=== PATIENT | male | born 1960 | race Caucasian/White ===

== ENCOUNTER → 2016-10-25 | Outpatient (CLI) | payer OTHER ==
[2016-10-18 07:00] VITALS: BP 119/81
[~2016-10-25] MED LIST: ACET325T9 PO; AMIO200T2 PO; ASPI-482 PO; ASPI325T4 PO; ATEN25TA PO; CLOP75TA PO; CLOP75TA27 PO; DIAZ5TAB4 PO; FAMO-63 PO; FLUT16SP NS; FURO80TA72 PO; GABA-586 PO; HYDR-2678 PO; HYDR-2762 PO; IBUP-1027 PO; IPRA3AMP NEB; ISOS30TA4 PO; ISOS60TA2 PO; LEVO500T38 PO; METO-269 PO; METO25TA9 PO; MONT10TA9 PO; OMEG300C PO; ONDA4TAB7 PO; PANT40TA5 PO; POLY17PO5 PO; POTA20TA12 PO; POTA20TA4 PO; PRED-220 PO; PRED5TAB19 PO; Promethazine Hcl/Codeine PO; RANO500T2 PO; SIMV20TA3 PO; TAMS0.4C97 PO; TEMA15CA6 PO; TERA2CAP3 PO
--- NOTE | 2016-10-26 15:09 | SLEEP ---
DATE OF STUDY: 10/25/2016 ATTENDING PHYSICIAN: Slava Ward M.D. The patient is 56-year-old who weighs 315 pounds with a BMI of 43. The patient had a home sleep study and was diagnosed with mild SHERRI. He returned to the sleep lab for CPAP titration. During the night study, the patient spent 424 minutes in bed and slept for 248 minutes with low sleep efficiency of 58%. Sleep latency was prolonged at 40 minutes with a REM latency of 46 minutes. Overall, sleep architecture showed normal stage I and stage II sleep, normal slow wave and normal REM sleep. The patient was started on CPAP at 5 cm water and titrated up to 11 cm of water. At the final pressure, the patient had 48 minutes of sleep. The patient had supine sleep, but no REM sleep was observed. AHI was zero per hour. Oxygen saturations remained above 89%. The patient used small sized nasal pillows. EKG monitoring revealed normal sinus rhythm. No sustained arrhythmias were observed. Average heart rate was 72 beats per minute. PLMS were not seen. IMPRESSION: 1. Sleep apnea diagnosed by home sleep study. 2. No clinically significant periodic limb movements of sleep. 3. Reduced sleep efficiency of 58%, resulting from sleep onset and sleep maintenance insomnia. RECOMMENDATIONS: 1. CPAP at 11 cm of water completely eliminated patient's sleep apnea and should be used on a nightly basis. 2. Follow up in 4-6 weeks to assess compliance with CPAP and to document clinical improvement. 3. Weight loss is advised. 4. 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 5. Caution regarding driving until symptoms of sleep apnea resolve with the use of CPAP. 6. Please evaluate insomnia if it persists despite use of CPAP. IMAN PIERRE MD DR: IZA/kiya JOB#: [id number] / [id number] SLAVA Chen MD MTDD
== END | disposition home or self-care (01) ==
LOC: RT 18:33
PROVIDERS: ATTEND Family Medicine
DX: G47.33 Obstructive sleep apnea (adult) (pediatric) (principal)
CPT/HCPCS: 95811

== ENCOUNTER 2016-12-10 21:55 | Emergency (ER) | payer MEDICARE, OTHER ==
[2016-12-10 22:28] LABS: BASO # 0.1 x10^3/uL (0.0-0.2); BASO % 1 % (0-3); EOS % 3 % (0-3); HEMATOCRIT 48.7 % (39.0-53.0); HEMOGLOBIN 16.8 g/dL (13.0-17.5); LYMPH # 3.2 x10^3/uL (1.0-4.8); LYMPH % 34 % (24-48); MEAN CORPUSCULAR HEMOGLOBIN 30 pg (25-35); MEAN CORPUSCULAR HGB CONC 35 g/dL (31-37); MEAN CORPUSCULAR VOLUME 88 fL (79-100); MONO % 9 % (0-9); NEUT % 53 % (31-73); PLATELET COUNT 214 x10^3/uL (140-400); RED BLOOD COUNT 5.55 x10^6/uL (4.30-5.70); RED CELL DISTRIBUTION WIDTH 14.9 % (11.5-14.5); WHITE BLOOD COUNT 9.4 x10^3/uL (4.0-11.0)
[2016-12-10] MEDS ORDERED: HYDROMORPHONE 2 MG/ML VIAL. IV PRN (22:30)
[2016-12-10] MEDS ORDERED: IV NORMAL SALINE 1000ML BAG 1,000 ML IV ONE (22:30)
[2016-12-10] MEDS ORDERED: ONDANSETRON PF 4 MG/2 ML VIAL. IV ONE (22:30)
[2016-12-10 22:43] LABS: ANION GAP 9 (6-14); BLOOD UREA NITROGEN 16 mg/dL (8-26); CALCIUM 8.4 mg/dL (8.5-10.1); CARBON DIOXIDE 30 mmol/L (21-32); CHLORIDE 106 mmol/L (98-107); CREATININE 1.2 mg/dL (0.7-1.3); GFR 62.4; GLUCOSE 135 mg/dL (70-99); POTASSIUM 3.9 mmol/L (3.5-5.1); SODIUM 145 mmol/L (136-145)
[2016-12-10 22:48] LABS: ALBUMIN 3.2 g/dL (3.4-5.0); ALK PHOS 85 U/L (46-116); ALT (SGPT) 27 U/L (16-63); AST (SGOT) 31 U/L (15-37); DIRECT BILIRUBIN < 0.1 mg/dL (0.0-0.2); TOTAL BILIRUBIN 0.7 mg/dL (0.2-1.0); TOTAL PROTEIN 7.3 g/dL (6.4-8.2)
[2016-12-10 23:11] LABS: BILIRUBIN,URINE SMALL (NEG); GLUCOSE,URINE NEGATIVE (NEG); NITRITE,URINE NEGATIVE (NEG); PROTEIN,URINE NEGATIVE (NEG-TRACE)
[2016-12-10 23:20] LABS: BACTERIA,URINE FEW /HPF (0-FEW); RBC,URINE 0 /HPF (0-2); SQUAMOUS EPITHELIAL CELL,UR FEW /LPF; WBC,URINE OCC /HPF (0-4)
--- NOTE | 2016-12-10 23:22 | RAD ---
PROCEDURE Right upper quadrant ultrasound HISTORY 56-year-old male with intermittent right upper quadrant pain that radiates to the back for 3 days, pain began tonight 1 hour postprandial. TECHNIQUE Transverse and longitudinal sonography of the right upper quadrant is performed. COMPARISON None FINDINGS The pancreas is obscured by overlying bowel gas. Liver demonstrates normal contour and echogenicity measuring 17.2 cm. Main portal vein demonstrates normal directional flow. The right kidney measures 11.1 x 5.0 x 5.4 cm, without evidence of hydronephrosis. The gallbladder wall appears mildly thickened at 4 millimeters. A few hyperechoic foci are present near the region of the gallbladder neck along the wall. Positive sonographic Montes sign is present. Common bile duct measures 5 mm in diameter. No free fluid is seen within the provided images. IMPRESSION Mild gallbladder wall thickening is nonspecific, without definite calcified gallstones or pericholecystic fluid seen to suggest acute cholecystitis. A few tiny hyperechoic foci are seen within the gallbladder lumen near the neck, may represent tiny stones or polyps. If clinical concern for acute cholecystitis is high, consider hepatobiliary scan. Electronically signed by: Shanita Patterson (Dec 10, 2016 23:21:37)
[2016-12-10] MEDS ORDERED: HYDR-2666 PO (23:31)
[2016-12-10] MEDS ORDERED: ONDA4TAB10 SL (23:31)
--- NOTE | 2016-12-10 23:32 | PHYS DOC ---
Past Medical History Past Medical History: Anxiety, CAD, CHF, High Cholesterol, Heart Disease, Hypertension, NE, Other Past Surgical History: Angioplasty, Coronary Bypass Surgery, Other Additional Past Surgical Histo: CARDIAC CATH WITH 6 STENTS PLACED, BACK SX, ACL SX Alcohol Use: None Drug Use: None Adult General Chief Complaint Chief Complaint: FLANK PAIN HPI HPI 56-year-old male presenting the emergency department with right upper quadrant abdominal pain is been present for 48 hours. The pain is sharp intermittent worse with fatty foods. He comes and goes. He denies fevers. He has nausea but without vomiting. He denies blood in his stools. Review of systems is negative for chest pain shortness of breath fevers chills. All other review of systems is negative unless otherwise noted in history of present illness. Review of Systems Review of Systems SEE ABOVE. Current Medications Current Medications Current Medications Medications (Trade) Dose Ordered Sig/[place] Start Time Stop Time Status Last Admin Dose Admin Hydromorphone HCl (Dilaudid) 0.5 mg PRN Q1HR PRN 12/10/16 22:30 12/10/16 22:35 0.5 MG Ondansetron HCl 4 mg 4 mg 1X ONCE 12/10/16 22:30 12/10/16 22:31 DC 12/10/16 22:34 4 MG Sodium Chloride (Iv Sodium Chloride 0.9% 1000ml Bag) 1,000 ml @ 1,000 mls/hr 1X ONCE 12/10/16 22:30 12/10/16 23:29 DC 12/10/16 22:34 1,000 MLS/HR Allergies Allergies Allergies Coded Allergies Type Severity Reaction Last Updated Verified No Known Drug Allergies 07/29/14 No Physical Exam Physical Exam Constitutional: Well developed, well nourished, no acute distress, non-toxic appearance. HENT: Normocephalic, atraumatic, bilateral external ears normal, oropharynx moist, no oral exudates, nose normal. [] Eyes: PERRLA, EOMI, conjunctiva normal, no discharge. Neck: Normal range of motion, no tenderness, supple, no stridor. [] Cardiovascular:Heart rate regular rhythm, no murmur Lungs & Thorax: Bilateral breath sounds clear to auscultation [] Abdomen: Abdomen is soft and mildly tender to palpation on the right upper quadrant. Negative McBurney's point. Negative Montes sign. No rebound tenderness or guarding is present. Skin: Warm, dry, no erythema, no rash. Back: No tenderness, no CVA tenderness. [] Extremities: No tenderness, no cyanosis, no clubbing, ROM intact, no edema. [] Neurologic: Alert and oriented X 3, normal motor function, normal sensory function, no focal deficits noted. [] Psychologic: Affect normal, judgement normal, mood normal. [] Current Patient Data Vital Signs Vital Signs Date Time Temp Pulse Resp B/P Pulse Ox O2 Delivery O2 Flow Rate FiO2 12/10/16 22:36 77 15 169/96 97 Room Air 12/10/16 22:00 98.4 98.4 Lab Values Laboratory Tests Test 12/10/16 22:10 12/10/16 22:45 White Blood Count 9.4x10^3/uL (4.0-11.0) Red Blood Count 5.55x10^6/uL (4.30-5.70) Hemoglobin 16.8g/dL (13.0-17.5) Hematocrit 48.7% (39.0-53.0) Mean Corpuscular Volume 88fL (79-100) Mean Corpuscular Hemoglobin 30pg (25-35) Mean Corpuscular Hemoglobin Concent 35g/dL (31-37) Red Cell Distribution Width 14.9% (11.5-14.5) H Platelet Count 214x10^3/uL (140-400) Neutrophils (%) (Auto) 53% (31-73) Lymphocytes (%) (Auto) 34% (24-48) Monocytes (%) (Auto) 9% (0-9) Eosinophils (%) (Auto) 3% (0-3) Basophils (%) (Auto) 1% (0-3) Neutrophils # (Auto) 4.9x10^3uL (1.8-7.7) Lymphocytes # (Auto) 3.2x10^3/uL (1.0-4.8) Monocytes # (Auto) 0.9x10^3/uL (0.0-1.1) Eosinophils # (Auto) 0.3x10^3/uL (0.0-0.7) Basophils # (Auto) 0.1x10^3/uL (0.0-0.2) Sodium Level 145mmol/L (136-145) Potassium Level 3.9mmol/L (3.5-5.1) Chloride Level 106mmol/L (98-107) Carbon Dioxide Level 30mmol/L (21-32) Anion Gap 9 (6-14) Blood Urea Nitrogen 16mg/dL (8-26) Creatinine 1.2mg/dL (0.7-1.3) Estimated GFR (Cockcroft-Gault) 62.4 Glucose Level 135mg/dL (70-99) H Calcium Level 8.4mg/dL (8.5-10.1) L Total Bilirubin 0.7mg/dL (0.2-1.0) Direct Bilirubin < 0.1mg/dL (0.0-0.2) Aspartate Amino Transferase (AST) 31U/L (15-37) Alanine Aminotransferase (ALT) 27U/L (16-63) Alkaline Phosphatase 85U/L (46-116) Troponin I Quantitative < 0.017ng/mL (0.000-0.055) Total Protein 7.3g/dL (6.4-8.2) Albumin 3.2g/dL (3.4-5.0) L Lipase 158U/L (73-393) Urine Collection Type Unknown Urine Color Yellow Urine Clarity Clear Urine pH 7.0 Urine Specific [place] 1.015 Urine Protein Negativemg/dL (NEG-TRACE) Urine Glucose (UA) Negativemg/dL (NEG) Urine Ketones (Stick) Negativemg/dL (NEG) Urine Blood Negative (NEG) Urine Nitrite Negative (NEG) Urine Bilirubin Small (NEG) Urine Urobilinogen Dipstick 4.0mg/dL (0.2 mg/dL) Urine Leukocyte Esterase Negative (NEG) Urine RBC 0/HPF (0-2) Urine WBC Occ/HPF (0-4) Urine Squamous Epithelial Cells Few/LPF Urine Bacteria Few/HPF (0-FEW) Lactic Acid Level 0.8mmol/L (0.4-2.0) Laboratory Tests 12/10/16 22:10 Laboratory Tests 12/10/16 22:10 EKG EKG [] Radiology/Procedures Radiology/Procedures [] Course & Med Decision Making Course & Med Decision Making Pertinent Labs and Imaging studies reviewed. (See chart for details) [] 56-year-old male presenting to the emergency department today with right upper quadrant abdominal pain. Afebrile normal heart rate. Hypertension present. Pertinent physical exam findings show a mildly tender right upper quadrant without rebound tenderness or guarding. Negative Montes sign. Ultrasound of the right upper quadrant mild gallbladder wall thickening which is nonspecific. Essentially, the ultrasound is equivocal. Blood work obtained which shows normal CBC. Urinalysis negative. Chemistry panel otherwise unremarkable. LFTs within normal limits. Valuation the patient's pain improved after being given fluids nausea and pain medication. Repeat abdominal exam shows nontender abdomen. Patient feeling comfortable. I discussed the case with the patient and recommended trial of the outpatient care with close follow-up. [id number] discharge instructions given. Patient comfortable with plan. At the very least the patient has biliary colic. He may require a HIDA scan if his symptoms worsen. Patient demonstrated verbal understanding. Dragon Disclaimer Dragon Disclaimer This electronic medical record was generated, in whole or in part, using a voice recognition dictation system. Departure Departure Impression: Primary Impression: Epigastric abdominal pain Disposition: HOME, SELF-CARE Condition: STABLE Referrals: ANTONIO JACOB MD (PCP) Patient Instructions: Abdominal Pain Additional Instructions: Thank you for allowing us to participate in your care today. Followup with your primary care physician in 3 days if your symptoms do not improve. If you do not have a primary care provider you can ask for a list of our primary care providers. Return to the emergency department you have any new or concerning findings. This should be evaluated by the primary care physician and any necessary consulting services for continued management within a few days after discharge. Return to emergency room if you have any new or concerning symptoms including but not limited to fever, chills, nausea, vomiting, intractable pain, any new rashes, chest pain, shortness of air, uncontrolled bleeding, difficulty breathing, and/or vision loss. You may have been prescribed medication that can change in your level of thinking and ability to operate machinery. These medications include hydrocodone and Ativan. Also, Benadryl has been known to do this as well. Be sure to check with your pharmacist and ask if the medications you've prescribed can affect your level of consciousness. I recommend not operating heavy machinery or driving while on medication such as these. Scripts Ondansetron (Zofran Odt)4 Mg Tab.rapdis1 Tab SL PRN Q8HRS PRN NAUSEA #6 TAB Prov:DAREN MCKAY MD 12/10/16 Hydrocodone Bit/Acetaminophen (Hydrocodone-Apap 5-325 )1 Each Tablet1 Tab PO PRN Q6HRS PRN PAIN #15 TAB Be careful as this medication may cause you to be drowsy or tired. Do not drive on this medication. Prov:DAREN MCKAY MD 12/10/16 DAREN MCKAY MD Dec 10, 2016 23:32
[2016-12-11 00:17] VITALS: BP 138/67
--- NOTE | 2016-12-11 11:08 | EKG ---
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
== END 2016-12-11 00:26 | disposition home or self-care (01) ==
LOC: ER 21:55
DX: R10.13 Epigastric pain (principal); I25.2 Old myocardial infarction; E78.00 Pure hypercholesterolemia, unspecified; I25.10 Atherosclerotic heart disease of native coronary artery without angina pectoris; I11.0 Hypertensive heart disease with heart failure; I50.9 Heart failure, unspecified; Z95.1 Presence of aortocoronary bypass graft
CPT/HCPCS: 36415; 76705; 80048; 80076; 81001; 83605; 83690; 84484; 85027; 93005; 96361; 96374; 96375; 99285; J1170; J2405; J7030

== ENCOUNTER 2016-12-29 09:43 | Inpatient (IN) | payer MEDICARE, OTHER ==
[~2016-12-29] VITALS: Ht 182.9 cm; Wt 143.9 kg
[~2016-12-29 09:43] MED LIST changes: +BUPIVAC MPF-EPI 0.5%-1:200000 30 ML VIAL. ONE; +CEFAZOLIN 2GM PREMIX 50 ML IV PRN; +FENTANYL PF 100 MCG/2 ML VIAL. IV PRN; +FENTANYL PF 100 MCG/2 ML VIAL. ONE; +HYDR-2666 PO; +HYDROMORPHONE 2 MG/ML VIAL. IV PRN; +IOHEXOL 300 MG/ML 50 ML VIAL. ONE; +IV RINGERS,LACTATED 1000ML 1,000 ML IV SCH; +LIDOCAINE 1% 1 ML SYRINGE. ID PRN; +LIDOCAINE 2% 100 MG/5 ML DISP.SYRIN. ONE; +MIDAZOLAM HCL 2 MG/2 ML VIAL. ONE; +MORPHINE SULFATE 2 MG/ML DISP.SYRIN. IV PRN; +ONDA4TAB10 SL; +ONDANSETRON PF 4 MG/2 ML VIAL. IV PRN; +ONDANSETRON PF 4 MG/2 ML VIAL. ONE; +PROCHLORPERAZINE 10 MG/2 ML VIAL. IV PRN; +PROPOFOL 20 ML IV ONE; +ROCURONIUM 50 MG/5 ML VIAL. ONE; +SEVOFLURANE 31 TO 60 MINUTES. IH ONE; +SURGICEL HEMOSTAT 4X8 EACH. ONE
[2016-12-29] MEDS ORDERED: SUCCINYLCHOLINE 200 MG/10 ML VIAL. ONE (11:05)
[2016-12-29] MEDS ORDERED: NEOSTIGMINE METHYLSULFATE 5 MG/5 ML SYRINGE. ONE (12:08)
[2016-12-29] MEDS ORDERED: GLYCOPYRROLATE 1 MG/5 ML VIAL. ONE (12:08)
--- NOTE | 2016-12-29 12:12 | RAD ---
Indication operative cholangiogram. A members of the Department of surgery fluoroscopy was provided. 4 fluoroscopic spot images were obtained. Fluoroscopy time associated with the examination was 36 seconds. The common bile duct appears unremarkable. Contrast flows unremarkably into the duodenum. IMPRESSION: Normal operative cholangiogram
[2016-12-29] MEDS ORDERED: FENTANYL PF 100 MCG/2 ML VIAL. ONE (12:18)
[2016-12-29] MEDS ORDERED: ONDANSETRON PF 4 MG/2 ML VIAL. IV PRN (12:30)
[2016-12-29] MEDS ORDERED: HYDROMORPHONE 2 MG/ML VIAL. IV PRN (12:30)
[2016-12-29] MEDS ORDERED: 0.9 % SODIUM CHLORIDE 10 ML DISP.SYRIN. IV PRN (12:30)
--- NOTE | 2016-12-29 12:38 | PDOC4 ---
Operative Note Operative Note Operative Note: Preoperative Diagnosis: Chronic cholecystitis Postoperative Diagnosis: Same Procedure: Laparoscopic cholecystectomy with intraoperative cholangiogram Surgeons: Adrian Anesthesia: Gen. Estimated Blood Loss: 10 mL Specimen: Gallbladder to pathology Drains: None Complications: None Indications: The patient is a 56 year old male who is been experiencing recurrent upper abdominal pain consistent with biliary colic. His evaluation was suggestive of cholecystitis with gallbladder stones vs polyps noted on ultrasound. Surgical treatment was offered by means of a laparoscopic cholecystectomy. The risks of surgery were discussed which include bleeding, infection, bile duct injury, bile leak, pain, the potential for additional surgeries or procedures. The patient understands and would like to proceed. Description: The patient was taken to the operating room and laid supine on the operating table. General anesthesia was performed. The abdomen was prepped with ChloraPrep and draped in a standard surgical fashion. A small infraumbilical incision was made with a scalpel. The Veress needle was then inserted and a pneumoperitoneum was then created. A 5 mm trocar was then inserted and the laparoscope was introduced. In the upper midabdomen an 11 mm trocar was inserted and in the right upper quadrant two5 mm trocars were inserted. The gallbladder was retracted cephalad. The cystic duct was dissected free from surrounding tissues. One clip was placed on the duct near the gallbladder junction. An opening was made in the duct and a cholangiocatheter placed within and secured with a clip. Using contrast dye and fluoroscopy an intraoperative cholangiogram was performed. There was some initial issues with constrast extravasation. I was able to milk out some debris from the cystic duct but no large stones. Another effort with dye introduction showed the common bile duct and much of the common hepatic duct. There was some continued extravasation at the insertion site likely from technical issues. There were no common duct filling defects and contrast readily passed into the duodenum. The clip and catheter were then withdrawn. Three clips were placed on the cystic duct and it was divided. The cystic artery was then identified, dissected free, doubly clipped and divided as well. The gallbladder was then mobilized away from the liver with cautery. The gallbladder was then placed in an endoscopic bag and extracted at the superior trocar site. The fascia there was closed with an 0 Vicryl suture using an endoclose. All blood and irrigation fluid was suctioned and hemostasis was good. The remaining ports were removed and the pneumoperitoneum was relieved. The skin incisions were injected with half percent Marcaine with epinephrine, and all were closed using 4-0 Monocryl suture. Steri-Strips and dressings were then applied. The patient tolerated the procedure well and was sent to the recovery room in stable condition. At the end of the case all counts were correct. LEE SAUCEDO MD Dec 29, 2016 12:38
[2016-12-29] MEDS ORDERED: DIAZEPAM 5 MG TABLET PO PRN (12:45)
[2016-12-29] MEDS ORDERED: HYDROCODONE/APAP 5/325MG TABLET. PO PRN (12:45)
[2016-12-29] MEDS: FENTANYL PF 100 MCG/2 ML VIAL. IV PRN ×2 (12:56→13:08)
[2016-12-29] MEDS ORDERED: FUROSEMIDE 80 MG TABLET PO SCH (13:00)
[2016-12-29] MEDS: TAMSULOSIN 0.4 MG CAP.ER.24H. PO SCH (13:00)
[2016-12-29] MEDS ORDERED: ATENOLOL 25 MG TABLET PO SCH (13:00)
[2016-12-29] MEDS: ISOSORBIDE MONONITRATE ER 60 MG TAB.ER.24H PO SCH (13:00)
[2016-12-29] MEDS: ASPIRIN 325 MG TABLET PO SCH (13:00)
[2016-12-29 18:19] VITALS: BP 157/85
[2016-12-29] MEDS: POTASSIUM CL 20MEQ-0.45% NACL 1,000 ML IV SCH (18:56)
[2016-12-29 19:00] VITALS: BP 117/74
[2016-12-29] MEDS ORDERED: SIMVASTATIN 20 MG TABLET PO SCH (21:00)
[2016-12-29] MEDS: HYDROCODONE/APAP 5/325MG TABLET. PO PRN ×2 (21:24→23:03)
[2016-12-29] MEDS: RANOLAZINE 500 MG TAB.ER.12H PO SCH (21:24)
[2016-12-29] MEDS: POTASSIUM CHLORIDE 20 MEQ TABLET.ER. PO SCH (21:25)
[2016-12-29 22:32] VITALS: BP 134/81
[2016-12-30] MEDS: POTASSIUM CL 20MEQ-0.45% NACL 1,000 ML IV SCH (01:49)
[2016-12-30] MEDS: HYDROCODONE/APAP 5/325MG TABLET. PO PRN ×2 (04:14→08:46)
[2016-12-30 04:20] VITALS: BP 109/59
[2016-12-30] MEDS ORDERED: FUROSEMIDE 80 MG TABLET. PO SCH (05:58)
[2016-12-30] MEDS ORDERED: ATENOLOL 25 MG TABLET. PO SCH (05:58)
[2016-12-30] MEDS ORDERED: ONDANSETRON PF 4 MG/2 ML VIAL. IV PRN (05:58)
[2016-12-30 07:00] VITALS: BP 136/79
[2016-12-30 08:13] LABS: HEMATOCRIT 48.2 % (39.0-53.0); HEMOGLOBIN 16.3 g/dL (13.0-17.5); RED BLOOD COUNT 5.45 x10^6/uL (4.30-5.70); RED CELL DISTRIBUTION WIDTH 14.9 % (11.5-14.5); WHITE BLOOD COUNT 12.4 x10^3/uL (4.0-11.0)
[2016-12-30 08:19] LABS: CALCIUM 8.7 mg/dL (8.5-10.1); CREATININE 1.1 mg/dL (0.7-1.3); POTASSIUM 3.8 mmol/L (3.5-5.1)
[2016-12-30] MEDS: ASPIRIN 325 MG TABLET PO SCH (08:36)
[2016-12-30] MEDS: ISOSORBIDE MONONITRATE ER 60 MG TAB.ER.24H PO SCH (08:38)
[2016-12-30] MEDS: TAMSULOSIN 0.4 MG CAP.ER.24H. PO SCH (08:38)
[2016-12-30] MEDS: RANOLAZINE 500 MG TAB.ER.12H PO SCH (08:40)
[2016-12-30] MEDS: POTASSIUM CHLORIDE 20 MEQ TABLET.ER. PO SCH (08:41)
[2016-12-30] MEDS ORDERED: CLOPIDOGREL BISULFATE 75 MG TABLET PO SCH (09:00)
[2016-12-30 11:14] VITALS: BP 105/67
[2016-12-30] MEDS ORDERED: HYDROMORPHONE 2 MG/ML VIAL. IV PRN (13:38)
--- NOTE | 2016-12-30 14:20 | PDOC ---
PROGRESS NOTES Subjective Subjective doing well, no complaints Objective Objective Vital Signs Date Time Temp Pulse Resp B/P Pulse Ox O2 Delivery O2 Flow Rate FiO2 12/30/16 11:14 97.9 65 18 105/67 92 Room Air 97.9 12/29/16 13:47 2 Intake and Output 12/30/16 07:00 Intake Total 1400 ml Output Total 80 ml Balance 1320 ml Intake Oral 600 ml IV Total 800 ml Output Urine Total 70 ml Estimated Blood Loss 10 ml Physical Exam Abdomen: Soft, No tenderness Assessment Assessment Problems Medical Problems: (1) Cholecystitis, chronic Status: Acute Plan Plan of Care Discharge Comment Review of Relevant I have reviewed the following items julian (where applicable) has been applied. Labs Laboratory Tests Test 12/30/16 07:46 White Blood Count 12.4x10^3/uL (4.0-11.0) Red Blood Count 5.45x10^6/uL (4.30-5.70) Hemoglobin 16.3g/dL (13.0-17.5) Hematocrit 48.2% (39.0-53.0) Mean Corpuscular Volume 89fL (79-100) Mean Corpuscular Hemoglobin 30pg (25-35) Mean Corpuscular Hemoglobin Concent 34g/dL (31-37) Red Cell Distribution Width 14.9% (11.5-14.5) Platelet Count 215x10^3/uL (140-400) Sodium Level 144mmol/L (136-145) Potassium Level 3.8mmol/L (3.5-5.1) Chloride Level 107mmol/L (98-107) Carbon Dioxide Level 28mmol/L (21-32) Anion Gap 9 (6-14) Blood Urea Nitrogen 15mg/dL (8-26) Creatinine 1.1mg/dL (0.7-1.3) Estimated GFR (Cockcroft-Gault) 69.0 Glucose Level 116mg/dL (70-99) Calcium Level 8.7mg/dL (8.5-10.1) Laboratory Tests Test 12/30/16 07:46 White Blood Count 12.4x10^3/uL (4.0-11.0) Red Blood Count 5.45x10^6/uL (4.30-5.70) Hemoglobin 16.3g/dL (13.0-17.5) Hematocrit 48.2% (39.0-53.0) Mean Corpuscular Volume 89fL (79-100) Mean Corpuscular Hemoglobin 30pg (25-35) Mean Corpuscular Hemoglobin Concent 34g/dL (31-37) Red Cell Distribution Width 14.9% (11.5-14.5) Platelet Count 215x10^3/uL (140-400) Sodium Level 144mmol/L (136-145) Potassium Level 3.8mmol/L (3.5-5.1) Chloride Level 107mmol/L (98-107) Carbon Dioxide Level 28mmol/L (21-32) Anion Gap 9 (6-14) Blood Urea Nitrogen 15mg/dL (8-26) Creatinine 1.1mg/dL (0.7-1.3) Estimated GFR (Cockcroft-Gault) 69.0 Glucose Level 116mg/dL (70-99) Calcium Level 8.7mg/dL (8.5-10.1) Medications Current Medications Ondansetron HCl (Zofran) 4 mg PRN Q6HRS PRN IV Nausea; Start 12/29/16 at 07:00 ; Stop 12/30/16 at 06:59; Status DC Fentanyl Citrate (Fentanyl 2ml Vial) 25 mcg PRN Q5MIN PRN IV MILD PAIN; Start 12/29/16 at 07:00; Stop 12/30/16 at 06:59; Status DC Fentanyl Citrate (Fentanyl 2ml Vial) 50 mcg PRN Q5MIN PRN IV MODERATE PAIN Last administered on 12/29/16t 13:08; Start 12/29/16 at 07:00; Stop 12/30/16 at 06:59; Status DC Morphine Sulfate 1 mg 1 mg PRN Q10MIN PRN IV SEVERE PAIN; Start 12/29/16 at 07: 00; Stop 12/30/16 at 06:59; Status DC Lactated Ringer's (Iv Lactated Ringers) 1,000 ml @ 0 mls/hr Q0M IV ; Start at 07:00; Stop 12/29/16 at 18:59; Status DC Lidocaine HCl 2 ml 1X PRN PRN ID IV START; Start 12/29/16 at 07:00; Stop at 06:59; Status DC Hydromorphone HCl (Dilaudid) 0.5 mg PRN Q10MIN PRN IV SEVERE PAIN, Second choice; Start 12/29/16 at 07:00; Stop 12/30/16 at 06:59; Status DC Prochlorperazine Edisylate 5 mg 5 mg PACU PRN PRN IV NAUSEA; Start 12/29/16 at 07:00; Stop 12/30/16 at 06:59; Status DC Cefazolin Sodium/ Dextrose (Ancef 2gm Premix) 50 ml @ 100 mls/hr 1X PREOP PRN IV PRIOR TO PROCEDURE Last administered on 12/29/16 11:15; Start 12/29/16 at 06 :00; Stop 12/29/16 at 18:00; Status DC Cellulose 1 each STK-MED ONCE .ROUTE ; Start 12/29/16 at 06:52; Stop 12/29/16 at 06:53; Status DC Bupivacaine HCl/ Epinephrine Bitart (Sensorcain-Mpf Epi 0.5%-1:[id number]) 30 ml STK -MED ONCE .ROUTE Last administered on 12/29/16 11:31; Start 12/29/16 at 06:52 ; Stop 12/29/16 at 06:53; Status DC Iohexol (Omnipaque 300 Mg/ml) 50 ml STK-MED ONCE .ROUTE Last administered on 11:31; Start 12/29/16 at 06:52; Stop 12/29/16 at 06:53; Status DC Ondansetron HCl 4 mg 4 mg STK-MED ONCE .ROUTE ; Start 12/29/16 at 09:13; Stop at 09:14; Status DC Propofol (Diprivan) 20 ml @ As Directed STK-MED ONCE IV ; Start 12/29/16 at 09: 13; Stop 12/29/16 at 09:14; Status DC Lidocaine HCl 100 mg STK-MED ONCE .ROUTE ; Start 12/29/16 at 09:13; Stop at 09:14; Status DC Sevoflurane (Ultane) 30 ml STK-MED ONCE IH ; Start 12/29/16 at 09:13; Stop 12/29 at 09:14; Status DC Rocuronium [place] (Zemuron) 50 mg STK-MED ONCE .ROUTE ; Start 12/29/16 at 09:13 ; Stop 12/29/16 at 09:14; Status DC Fentanyl Citrate (Fentanyl 2ml Vial) 100 mcg STK-MED ONCE .ROUTE ; Start at 09:13; Stop 12/29/16 at 09:14; Status DC Midazolam HCl (Versed) 2 mg STK-MED ONCE .ROUTE ; Start 12/29/16 at 09:13; Stop 12/29/16 at 09:14; Status DC Succinylcholine Chloride (Anectine) 200 mg STK-MED ONCE .ROUTE ; Start 12/29/16 at 11:05; Stop 12/29/16 at 11:06; Status DC Glycopyrrolate (Robinul) 1 mg STK-MED ONCE .ROUTE ; Start 12/29/16 at 12:08; Stop 12/29/16 at 12:09; Status DC Neostigmine Methylsulfate 5 mg STK-MED ONCE .ROUTE ; Start 12/29/16 at 12:08; Stop 12/29/16 at 12:09; Status DC Fentanyl Citrate (Fentanyl 2ml Vial) 100 mcg STK-MED ONCE .ROUTE ; Start at 12:18; Stop 12/29/16 at 12:19; Status DC Sodium Chloride 3 ml 3 ml QSHIFT PRN IV AFTER MEDS AND BLOOD DRAWS; Start 12/29 at 12:30 Potassium Chloride/Sodium Chloride (KCl 20 Meq-0.45% Nacl) 1,000 ml @ 75 mls/ hr [id number] IV Last administered on 12/30/16 01:49; Start 12/29/16 at 12:29 Acetaminophen/ Hydrocodone Bitart (Lortab 5/325) 1 tab PRN Q4HRS PRN PO MILD PAIN Last administered on 12/29/16 23:03; Start 12/29/16 at 12:30 Acetaminophen/ Hydrocodone Bitart (Lortab 5/325) 2 tab PRN Q4HRS PRN PO MODERATE PAIN, SEVERE PAIN Last administered on 12/30/16 08:46; Start 12/29/16 at 12:30 Hydromorphone HCl (Dilaudid) 0.2-0.5 Q3HRS PRN IV PAIN; Start 12/29/16 at 12:30 ; Stop 12/30/16 at 13:38; Status DC Ondansetron HCl (Zofran) 4 mg PRN Q6HRS PRN IV NAUESA, 1ST CHOICE; Start at 12:30; Stop 12/30/16 at 05:58; Status DC Atenolol (Tenormin) 12.5 mg DAILY PO ; Start 12/29/16 at 13:00; Stop 12/30/16 at 05:58; Status DC Furosemide (Lasix) 80 mg DAILY PO ; Start 12/29/16 at 13:00; Stop 12/30/16 at 05 :58; Status DC Isosorbide Mononitrate (Imdur) 60 mg DAILY PO Last administered on 12/30/16 08 :38; Start 12/29/16 at 13:00 Ranolazine (Ranexa) 500 mg BID PO Last administered on 12/30/16 08:40; Start 12/29/16 at 21:00 Simvastatin (Zocor) 20 mg HS PO Last administered on 12/29/16 21:25; Start at 21:00 Tamsulosin HCl (Flomax) 0.4 mg DAILY PO Last administered on 12/30/16 08:38; Start 12/29/16 at 13:00 Aspirin (Priscilla Aspirin) 325 mg DAILY PO Last administered on 12/30/16 08:36; Start 12/29/16 at 13:00 Clopidogrel Bisulfate (Plavix) 75 mg DAILY PO Last administered on 12/30/16 08 :36; Start 12/30/16 at 09:00 Diazepam (Valium) 5 mg PRN Q8HRS PRN PO ANXIETY / AGITATION; Start 12/29/16 at 12:45 Acetaminophen/ Hydrocodone Bitart (Lortab 5/325) 1 tab PRN Q6HRS PRN PO PAIN; Start 12/29/16 at 12:45; Stop 12/30/16 at 13:50; Status DC Potassium Chloride (Klor-Con) 20 meq BIDWMEALS PO Last administered on 08:41; Start 12/29/16 at 17:00 Ondansetron HCl (Zofran) 4 mg PRN Q6HRS PRN IV NAUESA, 1ST CHOICE; Start at 05:58 Atenolol (Tenormin) 12.5 mg DAILY PO Last administered on 12/30/16 08:37; Start 12/30/16 at 05:58 Furosemide (Lasix) 80 mg DAILY PO Last administered on 12/30/16 08:40; Start 12/30/16 at 05:58 Hydromorphone HCl (Dilaudid) 0.2 mg PRN Q3HRS PRN IV PAIN; Start 12/30/16 at 13 :38 Active Scripts Active Hydrocodone-Apap 5-325 (Hydrocodone Bit/Acetaminophen) 1 Each Tablet 1 Tab PO PRN Q6HRS PRN Be careful as this medication may cause you to be drowsy or tired. Do not drive on this medication. Ranexa (Ranolazine) 500 Mg Tab.er.12h 500 Mg PO BID Atenolol 25 Mg Tablet 12.5 Mg PO DAILY Clopidogrel (Clopidogrel Bisulfate) 75 Mg Tablet 1 Tab PO DAILY Reported Simvastatin 20 Mg Tablet 20 Mg PO HS Isosorbide Mononitrate Er (Isosorbide Mononitrate) 60 Mg Tab.er.24h 60 Mg PO DAILY Lasix (Furosemide) 80 Mg Tablet 80 Mg PO DAILY Diazepam 5 Mg Tablet 5 Mg PO PRN 3-4XDAILY PRN Flomax (Tamsulosin Hcl) 0.4 Mg Cap.er.24h 0.4 Mg PO DAILY Potassium Chloride 20 Meq Tab.er.prt 1 Tab PO BID Aspirin 325 Mg Tablet 1 Tab PO DAILY Vitals/I & O Vital Sign - Last 24 Hours 12/29/16 12/29/16 12/29/16 12/29/16 18:19 19:00 21:00 21:24 Temp 97.5 99.5 97.5 99.5 Pulse 62 68 Resp 16 18 20 B/P 157/85 117/74 Pulse Ox 94 93 O2 Delivery Room Air Room Air Room Air 12/29/16 12/29/16 12/29/16 12/30/16 21:24 22:32 23:03 00:03 Temp 98.7 98.7 Pulse 68 71 Resp 18 20 20 B/P 117/74 134/81 Pulse Ox 94 O2 Delivery Room Air 12/30/16 12/30/16 12/30/1612/30/17 04:14 04:20 05:14 07:00 Temp 98.5 97.7 98.5 97.7 Pulse 74 71 Resp 20 20 20 18 B/P 109/59 136/79 Pulse Ox 92 92 O2 Delivery Room Air Room Air 12/30/16 12/30/16 12/30/16 12/30/16 08:15 08:37 08:38 08:40 Pulse 71 71 71 B/P 136/79 136/79 136/79 O2 Delivery Room Air 12/30/16 12/30/16 12/30/16 08:46 09:46 11:14 Temp 97.9 97.9 Pulse 65 Resp 18 B/P 105/67 Pulse Ox 92 92 92 O2 Delivery Room Air Room Air Room Air Intake and Output 12/29/16 12/29/16 12/30/16 15:00 23:00 07:00 Intake Total 800 ml 600 ml Output Total 80 ml Balance 720 ml 600 ml LEE SAUCEDO MD Dec 30, 2016 14:20
--- NOTE | 2016-12-30 14:21 | DISCH ---
DISCHARGE INSTRUCTIONS Condition on Discharge Condition on Discharge: Stable Activity After Discharge Activity Instructions for Disc: Other, see below (no lifting over 20 lbs X 2 weeks) Driving Instructions after Dis: Other, see below (no driving while taking pain meds) Diet after Discharge Diet after Discharge: Regular Follow-Up Follow up with: Dr Saucedo in 2 weeks, call for appt [phone] LEE SAUCEDO MD Dec 30, 2016 14:21
--- NOTE | 2016-12-30 14:24 | PDOC3 ---
Discharge Summary Visit Information Date of Admission: Dec 29, 2016 Date of Discharge: Dec 30, 2016 Admitting Diagnosis: Chronic cholecystitis Final Diagnosis Problems Medical Problems: (1) Cholecystitis, chronic Status: Acute Brief Hospital Course Allergies Allergies Coded Allergies Type Severity Reaction Last Updated Verified No Known Drug Allergies 12/29/16 No Vital Signs Vital Signs Date Time Temp Pulse Resp B/P Pulse Ox O2 Delivery O2 Flow Rate FiO2 12/30/16 11:14 97.9 65 18 105/67 92 Room Air 97.9 12/29/16 13:47 2 Lab Results Laboratory Tests Test 12/30/16 07:46 White Blood Count 12.4x10^3/uL (4.0-11.0) Red Blood Count 5.45x10^6/uL (4.30-5.70) Hemoglobin 16.3g/dL (13.0-17.5) Hematocrit 48.2% (39.0-53.0) Mean Corpuscular Volume 89fL (79-100) Mean Corpuscular Hemoglobin 30pg (25-35) Mean Corpuscular Hemoglobin Concent 34g/dL (31-37) Red Cell Distribution Width 14.9% (11.5-14.5) Platelet Count 215x10^3/uL (140-400) Sodium Level 144mmol/L (136-145) Potassium Level 3.8mmol/L (3.5-5.1) Chloride Level 107mmol/L (98-107) Carbon Dioxide Level 28mmol/L (21-32) Anion Gap 9 (6-14) Blood Urea Nitrogen 15mg/dL (8-26) Creatinine 1.1mg/dL (0.7-1.3) Estimated GFR (Cockcroft-Gault) 69.0 Glucose Level 116mg/dL (70-99) Calcium Level 8.7mg/dL (8.5-10.1) Laboratory Tests Test 12/30/16 07:46 White Blood Count 12.4x10^3/uL (4.0-11.0) Red Blood Count 5.45x10^6/uL (4.30-5.70) Hemoglobin 16.3g/dL (13.0-17.5) Hematocrit 48.2% (39.0-53.0) Mean Corpuscular Volume 89fL (79-100) Mean Corpuscular Hemoglobin 30pg (25-35) Mean Corpuscular Hemoglobin Concent 34g/dL (31-37) Red Cell Distribution Width 14.9% (11.5-14.5) Platelet Count 215x10^3/uL (140-400) Sodium Level 144mmol/L (136-145) Potassium Level 3.8mmol/L (3.5-5.1) Chloride Level 107mmol/L (98-107) Carbon Dioxide Level 28mmol/L (21-32) Anion Gap 9 (6-14) Blood Urea Nitrogen 15mg/dL (8-26) Creatinine 1.1mg/dL (0.7-1.3) Estimated GFR (Cockcroft-Gault) 69.0 Glucose Level 116mg/dL (70-99) Calcium Level 8.7mg/dL (8.5-10.1) Brief Hospital Course Mr. Bear is a 56 old male who presented with chronic cholecystitis. He was taken to the operating room on 12/29/16 and underwent a laparoscopic cholecystectomy. His recovery was uneventful and he was discharged on POD 1. Discharge Information Follow Up: Weeks (2 weeks) Disposition/Orders: D/C to Home Scheduled Aspirin (Aspirin) 1 TAB PO DAILY (Reported) Atenolol (Atenolol) 12.5 MG PO DAILY Clopidogrel Bisulfate (Clopidogrel) 1 TAB PO DAILY Furosemide (Lasix) 80 MG PO DAILY (Reported) Isosorbide Mononitrate (Isosorbide Mononitrate Er) 60 MG PO DAILY (Reported) Potassium Chloride (Potassium Chloride) 1 TAB PO BID (Reported) Ranolazine (Ranexa) 500 MG PO BID Simvastatin (Simvastatin) 20 MG PO HS (Reported) Tamsulosin Hcl (Flomax) 0.4 MG PO DAILY (Reported) Scheduled PRN Diazepam (Diazepam) 5 MG PO PRN 3-4XDAILY PRN PRN ANXIETY / AGITATION (Reported ) Hydrocodone Bit/Acetaminophen (Hydrocodone-Apap 5-325 ) 1 TAB PO PRN Q6HRS PRN PRN PAIN LEE SAUCEDO MD Dec 30, 2016 14:24
[2016-12-30 15:00] VITALS: BP 94/63
--- NOTE | 2016-12-31 08:48 | PATHOLOGY ---
PATHOLOGY REPORT * * * * * * * * FINAL DIAGNOSIS: Gallbladder, cholecystectomy: - Chronic cholecystitis. - Cholesterolosis. - Cholelithiasis. (SKM:kenzie; d/t: 12/30/2016) REPORT ELECTRONICALLY SIGNED BY: Kathy Romero M.D. DATE/TIME: 12/31/2016 08:48 * * * * * * * * GROSS PATHOLOGY: Received in formalin labeled "Josef Aparicio Jr., gallbladder and contents," is a 9.7 x 2.6 x 2.4 cm, intact gallbladder with pink-garcia serosal surfaces. Opening the gallbladder reveals a velvety, bile-stained mucosa with mild, diffuse cholesterolosis and an average wall thickness of 0.1 cm. Calculi are present displaying a light ruiz and multifaceted appearance and no masses are noted grossly. Tool [employer] Equipment Rental Clerk sections from the body and fundus are submitted along with the proximal margin in cassette A1. (CAA; 12/29/2016) INITIAL CPT CODE(S): A; 84021 Professional services performed [place] [facility] [place] [address] Technical services performed by [facility] at [address] [place] [address] [address], [place] [address]. SPECIMEN(S) RECEIVED: A.Gallbladder and contens CLINICAL HISTORY: Gallstones PATIENT: JOSEF APARICIO /AGE: 1 1960 (Age: 56) PATIENT #: [id number] ALT CASE #: SPECIMEN COLLECTION DATE: 12/29/2016 SPECIMEN RECEIVED DATE: 12/29/2016 [facility] - [id number] [place] [address] - PHONE: [phone] * * * END OF REPORT * * *
== END 2016-12-30 17:20 | disposition home or self-care (01) | DRG 418 ==
LOC: SURG 09:43 → 5 SOUTH 13:05
PROVIDERS: ADMIT Surgery; ATTEND Surgery
PROC: BF121ZZ Fluoroscopy of Gallbladder using Low Osmolar Contrast (ICD-10-PCS; 2016-12-29)
PROC: 0FT44ZZ Resection of Gallbladder, Percutaneous Endoscopic Approach (ICD-10-PCS; principal; 2016-12-29 11:00)
DX: K81.1 Chronic cholecystitis (principal); Z68.41 Body mass index [BMI] 40.0-44.9, adult; F41.9 Anxiety disorder, unspecified; Z79.899 Other long term (current) drug therapy
CPT/HCPCS: 36415; 74300; 80048; 85027; C1769; C1782; J0330; J0690; J2250; J2405; J2704; J2710; J3010; J3490; J7030; Q9967

== ENCOUNTER → 2018-07-03 | Outpatient (CLI) | payer MEDICARE, OTHER ==
[~2018-07-03] MED LIST changes: -AMIO200T2 PO; +AMIO200T4 PO; -ASPI325T4 PO; +ASPI325T8 PO; -BUPIVAC MPF-EPI 0.5%-1:200000 30 ML VIAL. ONE; -CEFAZOLIN 2GM PREMIX 50 ML IV PRN; -CLOP75TA27 PO; +CLOP75TA57 PO; -FENTANYL PF 100 MCG/2 ML VIAL. IV PRN; -FENTANYL PF 100 MCG/2 ML VIAL. ONE; -HYDR-2666 PO; +HYDR-2758 PO; -HYDROMORPHONE 2 MG/ML VIAL. IV PRN; -IOHEXOL 300 MG/ML 50 ML VIAL. ONE; -IPRA3AMP NEB; +IPRA3AMP29 NEB; -IV RINGERS,LACTATED 1000ML 1,000 ML IV SCH; -LEVO500T38 PO; +LEVO500T59 PO; -LIDOCAINE 1% 1 ML SYRINGE. ID PRN; -LIDOCAINE 2% 100 MG/5 ML DISP.SYRIN. ONE; +METO-239 PO; -METO25TA9 PO; -MIDAZOLAM HCL 2 MG/2 ML VIAL. ONE; -MORPHINE SULFATE 2 MG/ML DISP.SYRIN. IV PRN; -ONDANSETRON PF 4 MG/2 ML VIAL. IV PRN; -ONDANSETRON PF 4 MG/2 ML VIAL. ONE; +POLY17PO29 PO; -POLY17PO5 PO; -PROCHLORPERAZINE 10 MG/2 ML VIAL. IV PRN; -PROPOFOL 20 ML IV ONE; -ROCURONIUM 50 MG/5 ML VIAL. ONE; -SEVOFLURANE 31 TO 60 MINUTES. IH ONE; -SURGICEL HEMOSTAT 4X8 EACH. ONE; +ZOLPIDEM 5 MG TABLET. PO ONE
--- NOTE | 2018-07-12 09:09 | SLEEP ---
DATE OF STUDY: 07/03/2018 SLEEP STUDY: ATTENDING PHYSICIAN: Dr. Slava Ward. The patient is 57 years old who weighs 301 pounds with a BMI of 39. The patient's Macon score was 6. The patient underwent sleep study performed by [facility]. This was a split night study. During the night study, the patient spent 438 minutes in bed and slept for 310 minutes with a sleep efficiency of 71%. Sleep latency was 103 minutes, which was prolonged with a REM latency of 3 and 17 minutes. Overall, sleep architecture showed increased stage 1 and stage 2 sleep, normal slow wave and reduced REM sleep. During the initial diagnostic portion of the study, the patient slept for 144 minutes. During that time, there were 119 obstructive apneas, 64 mixed apneas, 7 central apneas and 27 hypopneas. The patient's apnea hypopnea index was 91 per hour, supine index 106 per hour. REM sleep was not seen during the diagnostic portion of the study. EKG monitoring revealed an average heart rate of 83 beats per minute, no sustained arrhythmias were observed. Occasional PACs seen. PLMS were not observed. Nocturnal oximetry study revealed an average oxygen saturation of 92% with the lowest of 84%. 35% of time oxygen saturation remained between 80% and 89%. The patient met the criteria for CPAP initiation. It was started at 5 cm water and titrated up to 11 cm water. At the final pressure, the patient slept for 52 minutes. The patient had supine sleep throughout as well as short REM period was observed. The patient's AHI was reduced to 0 per hour and oxygen saturation remained above 91%. The patient used small size nasal pillows. IMPRESSION: 1. Severe sleep apnea-hypopnea syndrome at an AHI of 91 per hour. 2. Nocturnal hypoxia secondary to obstructive sleep apnea, but resolved with CPAP. 3. No clinically significant PLMS. RECOMMENDATIONS: 1. CPAP at 11 cm water completely eliminated the patient's sleep apnea, should be used on a nightly basis. 2. Follow up in 4-6 weeks to assess compliance with CPAP and to document clinical improvement. 3. Weight loss is strongly advised. 4. Avoid [employer]ET [employer] MAINTENANCE depressants. 5. Caution regarding driving until symptoms of sleep apnea resolve with the use of CPAP. 6. The patient used small size nasal pillows. IMAN PIERRE MD DR: Yfn JOB#: [id number] / [id number]
== END | disposition home or self-care (01) ==
LOC: SLPLAB 18:23
PROVIDERS: ATTEND Family Medicine
DX: G47.33 Obstructive sleep apnea (adult) (pediatric) (principal); G47.34 Idiopathic sleep related nonobstructive alveolar hypoventilation
CPT/HCPCS: 95810

== ENCOUNTER 2018-08-31 04:45 | Emergency (ER) | payer MEDICARE ==
[~2018-08-31] VITALS: Ht 182.9 cm; Wt 158.8 kg
[~2018-08-31 04:45] MED LIST changes: -HYDR-2758 PO; +HYDR-2761 PO; -HYDR-2762 PO; +HYDR-2765 PO; -ZOLPIDEM 5 MG TABLET. PO ONE
[2018-08-31] MEDS ORDERED: ASPIRIN 325 MG TABLET PO ONE (05:00)
--- NOTE | 2018-08-31 05:12 | PHYS DOC ---
Past Medical History Past Medical History: Anxiety, CAD, CHF, High Cholesterol, Heart Disease, Hypertension, ID, Other Past Surgical History: Angioplasty, Coronary Bypass Surgery, Other Additional Past Surgical Histo: CARDIAC CATH WITH 6 STENTS PLACED, BACK SX, ACL SX Additional Information: Denies Alcohol Use: None Drug Use: None Adult General Chief Complaint Chief Complaint: SHORTNESS OF BREATH HPI HPI 57-year-old male presents from home with report of shortness of breath upon waking this morning at 0100. Patient does report some recent weight gain. Denies fever or chills. Denies known trauma. Reports some increased leg swelling. Patient denies any chest pain. Reports history of CAD and congestive heart failure. Review of Systems Review of Systems Constitutional: Denies fever or chills [] Eyes: Denies change in visual acuity, redness, or eye pain [] HENT: Denies nasal congestion or sore throat [] Respiratory: Reports shortness of breath Cardiovascular: Denies chest pain or pleuritic pain GI: Denies abdominal pain, nausea, vomiting, or diarrhea [] : Denies dysuria or hematuria [] Integument: Denies rash or skin lesions [] Neurologic: Denies headache, focal weakness or sensory changes [] Complete systems were reviewed and found to be within normal limits, except as documented in this note. Current Medications Current Medications Current Medications Medications (Trade) Dose Ordered Sig/[place] Start Time Stop Time Status Last Admin Dose Admin Aspirin (Priscilla Aspirin) 243 mg 1X ONCE 08/31/18 05:00 08/31/18 05:16 DC Aspirin (Children'S Aspirin) 243 mg 1X ONCE 08/31/18 05:30 08/31/18 05:31 DC 08/31/18 05:30 243 MG Allergies Allergies Allergies Coded Allergies Type Severity Reaction Last Updated Verified No Known Drug Allergies 12/29/16 No Physical Exam Physical Exam Constitutional: Well developed, well nourished, no acute distress, non-toxic appearance. [] HENT: Normocephalic, atraumatic, oropharynx moist Eyes: Conjunctiva normal, no discharge. [] Neck: Normal range of motion, no tenderness, supple Cardiovascular: Heart rate regular rhythm, no murmur [] Lungs & Thorax: Diminished breath sounds at bases, no wheezes Abdomen: Obese, soft, nontender Skin: Warm, dry, no erythema, no rash. [] Extremities: No tenderness, ROM intact, 1+ edema bilaterally Neurologic: Alert and oriented X 3, normal motor function, normal sensory function, no focal deficits noted. [] Psychologic: Affect normal, judgement normal, mood normal. [] Current Patient Data Vital Signs Vital Signs Date Time Temp Pulse Resp B/P (MAP) Pulse Ox O2 Delivery O2 Flow Rate FiO2 08/31/18 04:45 98.2 73 20 147/78 (101) 99 Room Air 98.2 Lab Values Laboratory Tests Test 08/31/18 05:00 08/31/18 05:35 White Blood Count 10.1 x10^3/uL (4.0-11.0) Red Blood Count 5.62 x10^6/uL (4.30-5.70) Hemoglobin 17.5 g/dL (13.0-17.5) Hematocrit 49.7 % (39.0-53.0) Mean Corpuscular Volume 88 fL (79-100) Mean Corpuscular Hemoglobin 31 pg (25-35) Mean Corpuscular Hemoglobin Concent 35 g/dL (31-37) Red Cell Distribution Width 13.7 % (11.5-14.5) Platelet Count 206 x10^3/uL (140-400) Neutrophils (%) (Auto) 61 % (31-73) Lymphocytes (%) (Auto) 28 % (24-48) Monocytes (%) (Auto) 9 % (0-9) Eosinophils (%) (Auto) 2 % (0-3) Basophils (%) (Auto) 0 % (0-3) Neutrophils # (Auto) 6.2 x10^3uL (1.8-7.7) Lymphocytes # (Auto) 2.8 x10^3/uL (1.0-4.8) Monocytes # (Auto) 0.9 x10^3/uL (0.0-1.1) Eosinophils # (Auto) 0.2 x10^3/uL (0.0-0.7) Basophils # (Auto) 0.0 x10^3/uL (0.0-0.2) D-Dimer (Yuliana) 0.27 ug/mlFEU (0.00-0.50) Sodium Level 140 mmol/L (136-145) Potassium Level 3.4 mmol/L (3.5-5.1) L Chloride Level 102 mmol/L (98-107) Carbon Dioxide Level 31 mmol/L (21-32) Anion Gap 7 (6-14) Blood Urea Nitrogen 15 mg/dL (8-26) Creatinine 1.3 mg/dL (0.7-1.3) Estimated GFR (Cockcroft-Gault) 56.7 BUN/Creatinine Ratio 12 (6-20) Glucose Level 160 mg/dL (70-99) H Calcium Level 8.8 mg/dL (8.5-10.1) Magnesium Level 2.3 mg/dL (1.8-2.4) Total Bilirubin 0.8 mg/dL (0.2-1.0) Aspartate Amino Transferase (AST) 18 U/L (15-37) Alanine Aminotransferase (ALT) 33 U/L (16-63) Alkaline Phosphatase 90 U/L (46-116) Creatine Kinase 88 U/L (39-308) Creatine Kinase MB (Mass) 0.5 ng/mL (0.0-3.6) Creatine Kinase MB Relative Index % (0-4) Troponin I Quantitative < 0.017 ng/mL (0.000-0.055) OR-Cpm-A-Type Natriuretic Peptide 109 pg/mL (0-124) Total Protein 7.4 g/dL (6.4-8.2) Albumin 3.4 g/dL (3.4-5.0) Albumin/Globulin Ratio 0.9 (1.0-1.7) L Laboratory Tests 08/31/18 05:00 Laboratory Tests 08/31/18 05:35 EKG EKG @ 0454 NSR at 72bpm, NO ST elevation, Q wave III Radiology/Procedures Radiology/Procedures CXR 2 view (preliminary interpretation by ED physician): No acute process Course & Med Decision Making Course & Med Decision Making Pertinent Labs and Imaging studies reviewed. (See chart for details) Patient presents with sudden shortness of breath upon waking this morning at 0100. Denies any chest pain. Patient with significant cardiac risk factors as well as CHF. EKG stable. Labs obtained and pending at this time. Aspirin provided. Chest x-ray without acute process. Sign out given to Dr. Perez for further evaluation and final disposition. Discussed current findings and plan with patient, who acknowledges understanding and agreement. 6:50 AM: Patient care was assumed from Dr. Guerin at 6 AM shift change. He states he woke up to use the bathroom at about 1 AM and just didn't feel well. He states he felt short of breath and checks his blood pressure noted to be elevated about 170s systolic. This concerned him as he has a history of coronary artery disease and bypass surgery. His blood pressure is normal at this time. His symptoms have resolved by the time he came to the emergency department and is not having any complaints at this time. He denies shortness of breath currently, did not have any chest pain at any time. He denies any dizziness or lightheadedness, or orthopnea. No pleuritic pain. He has been reexamined, he has normal pulses, his lungs are clear, and he has no complaints. His vitals are normal. I discussed test results with the patient, the need for close PCP follow-up and return precautions. Dragon Disclaimer Dragon Disclaimer This electronic medical record was generated, in whole or in part, using a voice recognition dictation system. Departure Departure Impression: Primary Impression: Shortness of breath Disposition: 01 HOME, SELF-CARE Condition: STABLE Referrals: ANTONIO JACOB MD (PCP) Patient Instructions: Shortness of Breath ANTONIO GUERIN DO Aug 31, 2018 05:11 MATIAS PEREZ MD Aug 31, 2018 07:02
[2018-08-31] MEDS ORDERED: ASPIRIN CHEWABLE 81 MG TABLET. PO ONE (05:30)
[2018-08-31 05:36] LABS: BASO % 0 % (0-3); EOS # 0.2 x10^3/uL (0.0-0.7); EOS % 2 % (0-3); HEMATOCRIT 49.7 % (39.0-53.0); HEMOGLOBIN 17.5 g/dL (13.0-17.5); LYMPH # 2.8 x10^3/uL (1.0-4.8); LYMPH % 28 % (24-48); MEAN CORPUSCULAR HEMOGLOBIN 31 pg (25-35); MEAN CORPUSCULAR HGB CONC 35 g/dL (31-37); MEAN CORPUSCULAR VOLUME 88 fL (79-100); MONO # 0.9 x10^3/uL (0.0-1.1); MONO % 9 % (0-9); NEUT # 6.2 x10^3uL (1.8-7.7); NEUT % 61 % (31-73); PLATELET COUNT 206 x10^3/uL (140-400); RED BLOOD COUNT 5.62 x10^6/uL (4.30-5.70); RED CELL DISTRIBUTION WIDTH 13.7 % (11.5-14.5); WHITE BLOOD COUNT 10.1 x10^3/uL (4.0-11.0)
[2018-08-31 06:19] LABS: CALCIUM 8.8 mg/dL (8.5-10.1); CREATININE 1.3 mg/dL (0.7-1.3); GFR 56.7; POTASSIUM 3.4 mmol/L (3.5-5.1)
[2018-08-31 06:27] LABS: ALBUMIN 3.4 g/dL (3.4-5.0); ALBUMIN/GLOBULIN RATIO 0.9 (1.0-1.7); MAGNESIUM 2.3 mg/dL (1.8-2.4); TOTAL BILIRUBIN 0.8 mg/dL (0.2-1.0); TOTAL PROTEIN 7.4 g/dL (6.4-8.2)
[2018-08-31 06:35] LABS: CREATINE KINASE 88 U/L (39-308)
--- NOTE | 2018-08-31 06:47 | EKG ---
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
[2018-08-31 07:13] VITALS: BP 159/97
--- NOTE | 2018-08-31 07:43 | RAD ---
Chest, 2 views, 08/31/2018: HISTORY: Shortness of breath, hypertension Comparison is made to a study from 10/11/2016. There has been a previous median sternotomy. The heart size is normal. There is an unchanged hazy opacity obscuring the left heart border compatible with a prominent epicardial fat pad and scarring. No acute pulmonary infiltrate is seen. There is no evidence of pleural fluid. Mild spurring is present in the spine. IMPRESSION: No acute cardiopulmonary abnormality is detected. Electronically signed by: Juan Mcbride MD (08/31/2018 7:39 AM) [facility]
== END 2018-08-31 07:16 | disposition home or self-care (01) ==
LOC: ER 04:45
DX: R06.02 Shortness of breath (principal); R22.40 Localized swelling, mass and lump, unspecified lower limb; I11.0 Hypertensive heart disease with heart failure; I50.9 Heart failure, unspecified; E78.00 Pure hypercholesterolemia, unspecified; F41.9 Anxiety disorder, unspecified; I25.10 Atherosclerotic heart disease of native coronary artery without angina pectoris; I25.2 Old myocardial infarction; Z95.1 Presence of aortocoronary bypass graft; Z95.5 Presence of coronary angioplasty implant and graft; E66.9 Obesity, unspecified; Z68.42 Body mass index [BMI] 45.0-49.9, adult
CPT/HCPCS: 36415; 71046; 80053; 82553; 83735; 83880; 84484; 85025; 85379; 93005; 99284-25

== ENCOUNTER → 2018-10-10 | Outpatient (CLI) | payer MEDICARE ==
[~2018-10-10] MED LIST changes: -GABA-586 PO; +GABA300C18 PO; +PERFLUTREN PROTEIN-A MICROSPHR 0.22 MG/ML 3 ML VIAL. IV ONE; +PERFLUTREN PROTEIN-A MICROSPHR 0.22 MG/ML 3 ML VIAL. IV PRN; +REGADENOSON 0.4 MG/5 ML DISP.SYRIN. IV ONE
--- NOTE | 2018-10-11 13:26 | RAD ---
MR#: [id number] Date of Study: 10/11/2018 Ordering Physician: SINAI RAZO, Referring Physician: MAYUR DECKER Tech: EVA Toro, ARRT (R) (N) APPROVED REPORT Test Type: Pharmacological Stress Nurse/Tech: Sharla Edwards R.N./Estefani Calvo RN Test Indications: CAD, GRIFFIN, Family history Cardiac History: Family history, Hypertension, Bradycardia, PVC, CABG x4, stents Medications: See Electronic Medical Record Medical History: See Electronic Medical Record Resting ECG: NSR Resting Heart Rate: 69 bpm Resting Blood Pressure: 122/67mmHg Pretest Chest Pain: No chest pain Nurse/Tech Notes S1S2, Lungs CTA Consent: The procedure was explained to the patient in lay terms. Informed consent was witnessed. Josh eout was entered into [facility]. History and Stress Test performed by Sharla Edwards R.N./Estefani muse RN Pharm. Details Pharmacologic stress testing was performed using 0.4mg per 5ml of regadenoson given intravenously ove r 7-10 seconds. Stress Symptoms Dyspnea POST EXERCISE Reason for Termination: Infusion complete Max HR: 88 bpm Max Blood Pressure: 127/80mmHg Blood Pressure response to exercise: Normal blood pressure response during stress. Chest Pain: No. Arrhythmia: No. ST Change: No. INTERPRETATION Stress EKG Conclusion: Baseline EKG showed sinus rhythm. No ischemic changes at peak stress. No arr hythmias. Imaging Protocol IMAGE PROTOCOL: Rest Tc-99m/stress Tc-99m 2 days Rest: Stress: Viability: Radiopharm.Tc99m NloqrkrwvOf21u Sestamibi Soge57sKo 40mCi Img Date 10/10/2018 10/11/2018 Inj-Img [id number]. 90min. Rest Admin Site:IV - Right HandAdministrator:RT Joe (R)(N) Stress Admin Site: IV - Right HandAdministrator: RT Joe (R)(N) STRESS DATA End Diast. Vol.142.0mlLVEDV index BSA55.0ml End Syst. Vol.62.0mlLVESV index BSA24.0ml Myocardial Almj241.0gEject. Exhbfwcr30.0% Stress Scores Regional WT0.00Summed WT10.00 Regional WM1.00Summed WM4.00 LV Perfusion Scintigraphic images showed moderate reversible defect involving the inferior and inferolateral tiwari consistent with ischemia. Wall Motion Normal left ventricle systolic function with ejection fraction calculated at 56%. LV Perf. Quant 17 Seg. SSS10.00 17 Seg. SRS0.00 17 Seg. SDS10.00 Stress Defect Extent (% LAD)1.30Rest Defect Extent (% LAD)0.00Rev. Defect Extent (% LAD)0.00 Stress Defect Extent (% LCX) 38.80Rest Defect Extent (% LCX)8.80Rev. Defect Extent (% LCX)37.50 Stress Defect Extent (% RCA)31.10Rest Defect Extent (% RCA)0.00Rev. Defect Extent (% RCA)28.90 Stress Defect Extent (% BRITTNEE)20.00Rest Defect Extent (% BRITTNEE)1.50Rev. Defect Extent (% BRITTNEE)17.00 Conclusion 1. Regadenoson cardioisotope stress test showed moderate amount of inferior and inferolateral wall is chemia. 2. Normal left ventricular systolic function with ejection fraction calculated at 56%. 3. Low risk for cardiac events. Signed by : Sinai Razo, Electronically Approved : 10/11/2018 13:25:14
--- NOTE | 2018-10-11 13:29 | CARD ---
MR#: [id number] Date of Study: 10/11/2018 Ordering Physician: MADY RAGSDALE, Referring Physician: SINAI PELAYO Tech: Shanita Mayes APPROVED REPORT EXAM: Two-dimensional and M-mode echocardiogram with Doppler and color Doppler. Other Information HR: 69bpm INDICATION ASD Chest Pain Echo Enhancing Agent Indication: Endocardial border delineation Agent/Amount Used: Optison 8mL RISK FACTORS Hypertension Hyperlipidemia 2D DIMENSIONS RVDd2.7 (2.9-3.5cm)Left Atrium(2D)4.1 (1.6-4.0cm) IVSd1.5 (0.7-1.1cm)Aortic Root(2D)3.1 (2.0-3.7cm) LVDd4.9 (3.9-5.9cm)LVOT Diameter2.2 (1.8-2.4cm) PWd1.5 (0.7-1.1cm)LVDs2.6 (2.5-4.0cm) FS (%) 48.0 %SV91.1 ml LVEF(%)79.2 (>50%) Aortic Valve AoV Peak Neptali.150.6cm/sAoV VTI23.8cm AO Peak GR.9.1mmHgLVOT Peak Neptali.88.0cm/s LVOT VTI 18.12cmAO Mean GR.5mmHg [place]ANG (VMAX)1.69cg9JYX (VTI)2.86cm2 Mitral Valve MV E Frhpbasg62.9cm/sMV DECEL OGQK945qx MV A Lfkxqkct96.4cm/sMV CFK63fe E/A Ratio1.2MVA (PHT)3.90cm2 TDI E/Lateral E'6.6E/Medial E'6.6 Pulmonary Valve PV Peak Esgspjcn221.6cm/sPV Peak Grad.4mmHg Tricuspid Valve TR P. Syhgqpty120vm/sRAP FTFBYWTY3quYt TR Peak Gr.35npNjCLAR82dtOx Pulmonary Vein S1 Vmevrxud79.1cm/sD2 Gxcnuzno55.8cm/s PVa ploufkqc015zvuw LEFT VENTRICLE The left ventricle is normal size. There is moderate to severe concentric left ventricular hypertroph y. The left ventricular systolic function is normal. The Ejection Fraction is 60%. There is normal LV segmental wall motion. The left ventricular diastolic function and filling is normal for age. RIGHT VENTRICLE The right ventricle is borderline dilated. There is normal right ventricular wall thickness. The righ t ventricular systolic function is normal. ATRIA The left atrium size is normal. The right atrium size is normal. The interatrial septum is intact wit h no evidence for an atrial septal defect or patent foramen ovale as noted on 2-D or Doppler imaging. AORTIC VALVE The aortic valve is not well visualized. Doppler and Color Flow revealed no significant aortic regurg itation. There is no significant aortic valvular stenosis. MITRAL VALVE The mitral valve is normal in structure and function. There is no evidence of mitral valve prolapse. There is no mitral valve stenosis. Doppler and Color-flow revealed trace mitral regurgitation. TRICUSPID VALVE The tricuspid valve is not well visualized. Doppler and Color Flow revealed trace tricuspid regurgita tion. There is no tricuspid valve stenosis. PULMONIC VALVE The pulmonic valve is not well visualized. Doppler and Color Flow revealed no pulmonic valvular regur gitation. GREAT VESSELS The aortic root is normal in size. The IVC is normal in size and collapses >50% with inspiration. PERICARDIAL EFFUSION There is no evidence of significant pericardial effusion. Critical Notification Critical Value: No <Conclusion> The left ventricular systolic function is normal. The Ejection Fraction is 60%. There is normal LV segmental wall motion. Trace mitral regurgitation. Trace tricuspid regurgitation. There is no evidence of significant pericardial effusion. Signed by : Sinai Pelayo, Electronically Approved : 10/11/2018 13:27:35
== END | disposition home or self-care (01) ==
LOC: NM 08:38
PROVIDERS: ATTEND Internal Medicine Cardiovascular Disease
DX: R07.9 Chest pain, unspecified (principal); I10 Essential (primary) hypertension; E78.5 Hyperlipidemia, unspecified; I25.10 Atherosclerotic heart disease of native coronary artery without angina pectoris; Z82.49 Family history of ischemic heart disease and other diseases of the circulatory system
CPT/HCPCS: 78452; 96374; A9500; 93017; 96376; C8929; J2785; Q9956

== ENCOUNTER → 2019-11-28 | Outpatient (CLI) | payer MEDICARE ==
[2019-04-05 11:00] VITALS: BP 155/63
[~2019-11-28] MED LIST changes: +ASPI-630 PO; +ATOR40TA PO; +KRIL500C PO; +METF500T11 PO; +METO25TA4 PO; +MONT10TA49 PO; -MONT10TA9 PO; -PANT40TA5 PO; +PANT40TA77 PO; -PERFLUTREN PROTEIN-A MICROSPHR 0.22 MG/ML 3 ML VIAL. IV ONE; -PERFLUTREN PROTEIN-A MICROSPHR 0.22 MG/ML 3 ML VIAL. IV PRN; +RANO10002 PO; -REGADENOSON 0.4 MG/5 ML DISP.SYRIN. IV ONE; +SIMV20TA18 PO; -SIMV20TA3 PO
[2019-11-28 12:09] LABS: CHOLESTEROL/HDL RATIO 3.9
== END ==
LOC: LAB 11:14
PROVIDERS: ATTEND Internal Medicine Cardiovascular Disease
DX: I25.10 Atherosclerotic heart disease of native coronary artery without angina pectoris (principal)
CPT/HCPCS: 36415; 80061; 83721